=== PATIENT | female | born 1950 | race Two or more races ===

== ENCOUNTER 2023-09-09 19:45 | Emergency (ER) | payer OTHER ==
[~2023-09-09] VITALS: Ht 162.6 cm; Wt 65.4 kg
[2023-09-09] MEDS: ONDANSETRON HCL 4 MG/2 ML VIAL IV ONE (20:15)
[2023-09-09] MEDS: SODIUM CHLORIDE 0.9% 1,000 ML IV ONE (20:15)
[2023-09-09] MEDS ORDERED: cefTRIAXone 2GM/50ML D5W 50 ML IV ONE (20:15)
[2023-09-09] MEDS ORDERED: MORPHINE SULFATE INJ 2 MG/ml SYRG IV ONE (20:15)
[2023-09-09 21:20] LABS: Basophils # (auto) 0.1 10 ^3/uL (0-0.2); Basophils % (auto) 0.6 % (0.0-2.0); Eosinophils # (auto) 0.4 10 ^3/uL (0-0.8); Eosinophils % (auto) 4.4 % (0.0-7.0); Hematocrit 37.6 % (36.0-46.0); Hemoglobin 12.9 g/dL (12.2-16.2); Lymphocytes # (auto) 3.2 10 ^3/uL (0.4-5.4); Mean Corpuscular Hemoglobin 29.8 pg (28.0-32.0); Mean Corpuscular Hgb Conc. 34.3 g/dL (32.0-36.0); Mean Corpuscular Volume 86.9 fL (80.0-100.0); Monocytes # (auto) 0.9 10 ^3/uL (0-1.3); Monocytes % (auto) 9.3 % (0.0-12.0); Neutrophils % (auto) 52.7 % (37.0-80.0); Red Blood Cells 4.32 10^6/uL (4.0-5.20); Red Cell Distribution Width 13.3 % (11.8-14.3); White Blood Cell 9.5 10^3/uL (4.4-10.8)
[2023-09-09 21:34] LABS: Alanine Aminotransferase 29 U/L (7-40); Albumin 4.6 g/dL (3.2-4.8); Alkaline Phosphatase 92 U/L (46-116); Anion Gap 8 (5-15); Aspartate Aminotransferase 14 U/L (13-40); BUN/Creatinine Ratio 17.9 (10.0-20.0); Bilirubin, Total 0.3 mg/dL (0.2-1.0); Blood Urea Nitrogen 25 mg/dL (9-23); Calcium 9.7 mg/dL (8.7-10.4); Carbon Dioxide 26 mmol/L (20-30); Chloride 101 mmol/L (98-107); Glucose 127 mg/dL (74-106); Potassium 4.3 mmol/L (3.5-5.1); Sodium 135 mmol/L (136-145); Total Protein 7.3 g/dL (5.7-8.2)
[2023-09-09 22:15] VITALS: BP 148/95; TEMP 98.3
[2023-09-09] MEDS ORDERED: CEPH500T PO (22:32)
[2023-09-09] MEDS ORDERED: ACET-1304 PO (22:32)
[2023-09-09] MEDS: ACETAMINOPHEN 500 MG TAB PO ONE (22:40)
[2023-09-09] MEDS: IBUPROFEN 600 MG TAB PO ONE (22:41)
[2023-09-09] MEDS: cefTRIAXone 1GM/50ML D5W 50 ML IV ONE ×2 (22:45→23:09)
[2023-09-09 23:13] LABS: Urine Bacteria MANY /hpf (None Seen); Urine Blood 1+ /uL (Negative); Urine Clarity Clear (Clear); Urine Protein, UAD Negative (Negative); Urine Urobilinogen Normal (Negative); Urine WBC 47 /hpf (0 - 5); Urine WBC Clumps PRESENT /hpf (None Seen); Urine pH 5.5 (5.0-9.0)
[2023-09-09 23:22] LABS: Urine Color STRAW (Yellow)
[2023-09-09 23:24] VITALS: PULSE 76; RESP 16; O2SAT 98
== END 2023-09-09 23:36 | disposition home or self-care (01) ==
LOC: ER 19:45
DX: N39.0 Urinary tract infection, site not specified (principal); I10 Essential (primary) hypertension; E78.5 Hyperlipidemia, unspecified; Z98.890 Other specified postprocedural states; Z88.5 Allergy status to narcotic agent; Z79.899 Other long term (current) drug therapy
CPT/HCPCS: 36415; 74176; 80053; 81001; 83605; 85025; 96361; 96365; 96375; 99285; J0696; J2405; J7030